=== PATIENT | female | born 1995 | race Caucasian/White ===

== ENCOUNTER → 2020-03-29 | Outpatient (CLI) | payer OTHER ==
--- NOTE | 2020-03-29 09:49 | USB ---
Reason for exam: clinical finding. History: Taking hormonal contraceptives beginning at age 15. Indicated problem(s): palpable abnormality in the right breast. Physical Findings: Nurse Summary: 1cm movable lesion in the right breast (nurse dw). US Breast RT Right complete breast ultrasound includes all four quadrants, the retroareolar region and axilla. Finding demonstrates no cystic or solid lesion seen. These results were verbally communicated with the patient and result sheet given to the patient on 03/29/20. ASSESSMENT: Benign, BI-RAD 2 RECOMMENDATION: Clinical management of the right breast. Manage patient on a clinical basis.
== END | disposition home or self-care (01) ==
LOC: RADUSWWP 08:25
PROVIDERS: ATTEND Surgery
DX: N63.10 Unspecified lump in the right breast, unspecified quadrant (principal)

== ENCOUNTER 2021-12-24 08:45 | Emergency (ER) | payer OTHER ==
--- NOTE | 2021-12-24 10:19 | ED ---
Anxiety HPI - General Chief Complaint: Anxiety Stated Complaint: mental health Time Seen by Provider: 12/24/21 09:02 Source: patient, RN notes reviewed Mode of arrival: ambulatory Limitations: no limitations - History of Present Illness Initial Comments: 25-year-old female presents emergency Department chief complaint of anxiety. Patient's been having worsening anxiety which she did see her primary care physician Dr. Vega yesterday was placed on Lexapro. Patient had full set of labs which were unremarkable. Patient states she just gets overwhelmed and was very anxious heart races.Patient denies being suicidal or homicidal denies any illicit drug use no alcohol abuse. Patient denies any physical complaints. - Related Data Home Medications: Previous Rx's Medication Instructions Recorded Ibuprofen [Motrin] 600 mg PO Q6HR PRN #30 tab 08/20/14 ALPRAZolam [Xanax] 0.5 mg PO TID PRN #9 tablet 12/24/21 Allergies/Adverse Reactions: Allergies Allergy/AdvReac Type Severity Reaction Status Date / Time No Known Allergies Allergy Verified 12/24/21 09:13 Review of Systems ROS Statement: Those systems with pertinent positive or pertinent negative responses have been documented in the HPI. ROS Other: All systems not noted in ROS Statement are negative. Past Medical History Past Medical History: No Reported History History of Any Multi-Drug Resistant Organisms: None Reported Past Surgical History: No Surgical Hx Reported Past Psychological History: Anxiety Smoking Status: Vaper Past Alcohol Use History: None Reported Past Drug Use History: None Reported - Past Family History Mother Family Medical History: Thyroid Disorder Additional Family Medical History / Comment(s): had surgery 2009 to plug to holes in her heart General Exam Limitations: no limitations General appearance: alert, in no apparent distress Head exam: Present: atraumatic, normocephalic, normal inspection Eye exam: Present: normal appearance, PERRL, EOMI. Absent: scleral icterus, conjunctival injection, periorbital swelling ENT exam: Present: normal exam, mucous membranes moist Neck exam: Present: normal inspection, full ROM. Absent: tenderness, meningismus, lymphadenopathy Respiratory exam: Present: normal lung sounds bilaterally. Absent: respiratory distress, wheezes, rales, rhonchi, stridor Cardiovascular Exam: Present: regular rate, normal rhythm, normal heart sounds. Absent: systolic murmur, diastolic murmur, rubs, gallop, clicks Neurological exam: Present: alert Psychiatric exam: Present: anxious Course Vital Signs 12/24/21 09:11 Temperature 98 F Pulse Rate 89 Respiratory 16 Rate Blood Pressure 135/94 O2 Sat by Pulse 100 Oximetry Medical Decision Making - Medical Decision Making Patient multiple issues with anxiety, concerns for cardiac issues patient, laboratory unremarkable EKG was performed today does not reveal any acute findings patient will start her Lexapro today as directed will be given abortive anxiolytics short course and return parameters were discussed. Disposition Clinical Impression: Acute anxiety Disposition: HOME SELF-CARE Instructions (If sedation given, give patient instructions): Generalized Anxiety Disorder (ED) Additional Instructions: Please return to the Emergency Department if symptoms worsen or any other concerns. Prescriptions: ALPRAZolam [Xanax] 0.5 mg PO TID PRN #9 tablet PRN Reason: Anxiety Is patient prescribed a controlled substance at d/c from ED?: No Referrals: Shay Vega MD [Primary Care Provider] - 1-2 days Time of Disposition: 10:18
[2021-12-24 10:28] VITALS: BP 110/18; PULSE 88; RESP 18; TEMP 98.2
== END 2021-12-24 10:27 | disposition home or self-care (01) ==
LOC: EC 08:45
DX: F41.9 Anxiety disorder, unspecified (principal); F17.290 Nicotine dependence, other tobacco product, uncomplicated
CPT/HCPCS: 93005; 99283